=== PATIENT | male | born 1985 | race Two or more races ===

== ENCOUNTER 2020-11-30 20:16 | Emergency (ER) | payer SELFPAY ==
[~2020-11-30] VITALS: Ht 167.6 cm; Wt 77.1 kg
[2020-11-30 20:26] VITALS: BP 112/70
[2020-11-30 22:07] LABS: Basophils # (auto) 0 10 ^3/uL (0-0.2); Eosinophils # (auto) 0.2 10 ^3/uL (0-0.8); Monocytes # (auto) 0.7 10 ^3/uL (0-1.3); Red Cell Distribution Width 12.7 % (11.8-14.3); White Blood Cell 8.4 10^3/uL (4.4-10.8)
[2020-11-30 22:08] LABS: Basophils % (auto) 0.5 % (0.0-2.0); Hematocrit 46.4 % (41.0-53.0); Hemoglobin 16.3 g/dL (13.5-17.5); Lymphocytes # (auto) 1.5 10 ^3/uL (0.4-5.4); Lymphocytes % (auto) 17.8 % (10.0-50.0); Mean Corpuscular Hemoglobin 34.5 pg (28.0-32.0); Mean Corpuscular Hgb Conc. 35.2 g/dL (32.0-36.0); Mean Corpuscular Volume 97.9 fL (80.0-100.0); Monocytes % (auto) 8.8 % (0.0-12.0); Neutrophils # (auto) 5.9 10 ^3/uL (1.6-8.6); Neutrophils % (auto) 70.9 % (37.0-80.0); Platelet Count (auto) 223 10^3/uL (140-450); Red Blood Cells 4.74 10^6/uL (4.5-5.90)
[2020-12-01] MEDS ORDERED: IBUPROFEN 800 MG TAB PO ONE (02:30)
[2020-12-01] MEDS ORDERED: AZITHROMYCIN 250 MG TAB PO ONE (02:30)
[2020-12-01] MEDS ORDERED: cefTRIAXone SOD 1,000 MG VL IM ONE (02:30)
== END 2020-12-01 03:08 | disposition home or self-care (01) ==
LOC: ER 20:16
DX: S83.92XA Sprain of unspecified site of left knee, initial encounter (principal); M25.462 Effusion, left knee; X58.XXXA Exposure to other specified factors, initial encounter; Y93.89 Activity, other specified; Y92.89 Other specified places as the place of occurrence of the external cause; Y99.8 Other external cause status
CPT/HCPCS: 29505; 36415; 73562; 85025; 85652; 86141; 87040; 96372; 99284; J0696; J7030